=== PATIENT | female | born 1985 | race Caucasian/White ===

== ENCOUNTER 2018-04-28 15:53 | Emergency (ER) | payer OTHER ==
[~2018-04-28] VITALS: Ht 160 cm; Wt 86.4 kg
[2018-04-28 16:03] VITALS: BP 153/117; Ht 160 cm; Wt 86.4 kg
[2018-04-28] MEDS ORDERED: ZYPREXA5 MG PO ×2 (16:11→18:01)
[2018-04-28] MEDS ORDERED: MINIPRESS2 MG PO ×2 (16:12→18:01)
== END 2018-04-28 18:25 | disposition home or self-care (01) ==
LOC: D.ER 15:53
DX: Z76.0 Encounter for issue of repeat prescription (principal); R44.0 Auditory hallucinations

== ENCOUNTER 2018-05-02 11:40 | Emergency (ER) | payer OTHER ==
[~2018-05-02] VITALS: Ht 160 cm; Wt 84.1 kg
[~2018-05-02 11:40] MED LIST: MINIPRESS2 MG PO; ZYPREXA5 MG PO
[2018-05-02 11:46] VITALS: Ht 160 cm; Wt 84.1 kg
[2018-05-02] MEDS ORDERED: MINIPRESS2 MG PO (12:14)
[2018-05-02] MEDS ORDERED: ZYPREXA10 MG PO (12:14)
[2018-05-02 12:29] VITALS: BP 127/71
== END 2018-05-02 12:32 | disposition home or self-care (01) ==
LOC: D.ER 11:40
DX: F20.9 Schizophrenia, unspecified (principal)